=== PATIENT | female | born 2000 | race Caucasian/White ===

== ENCOUNTER → 2020-03-09 | Outpatient (CLI) | payer BC ==
[~2020-03-09] MED LIST: ABILIFY 10MG TA10 MG PO; ATARAX 25MG25 MG/TAB PO; MELATONIN1 MG PO; RITALIN 20M20 MG/TAB PO; STRATTERA18 MG PO; TRAZADONE HYDR100 MG PO
== END ==
LOC: COL.PUL 07:54
DX: J45.909 Unspecified asthma, uncomplicated (principal)

== ENCOUNTER 2020-06-25 22:51 | Emergency (ER) | payer BC ==
[~2020-06-25] VITALS: Ht 172.7 cm; Wt 77.3 kg
[2020-06-25 22:53] VITALS: BP 127/90; TEMP 97.7
[2020-06-25 23:17] LABS: BASO # 0.1 (0.0-0.2); BASO % 0.6 % (0.0-2.0); EOS # 0.1 (0.0-0.7); EOS % 1.7 % (0-4.0); GRAN # 3.8 (1.4-6.5); GRAN % 48.9 % (42.2-75.2); HEMATOCRIT 41.2 % (35.0-45.0); HEMOGLOBIN 14.1 g/dl (12.0-15.0); LYMPH % 39.5 % (20.0-51.0); MEAN CELL VOLUME 87 fl (80.0-95.0); MEAN CORPUSCULAR HEMOGLOBIN 30 pg (26.0-32.0); MEAN CORPUSCULAR HGB CONC 34 g/dl (33.0-37.0); MEAN PLATELET VOLUME 10.5 fl (7.4-10.4); MONO # 0.7 (0.1-0.6); PLATELET COUNT 232 K/mm3 (130-400); RED BLOOD COUNT 4.74 M/mm3 (4.10-5.30); REDCELL DISTRIBUTION WIDTH-CV 12.3 % (11.5-14.5)
[2020-06-25 23:28] LABS: ALANINE AMINOTRANSFERASE 29 U/L (4-34); ALBUMIN 4.7 gm/dL (3.5-5.0); ALKALINE PHOSPHATASE 80 U/L (50-136); ANION GAP 11 mmol/L (7-16); AST,SGOT 26 U/L (15-37); BILIRUBIN,TOTAL 0.3 mg/dL (0.0-1.0); BLOOD UREA NITROGEN 11 mg/dL (7-17); CALCIUM 9.8 mg/dL (8.4-10.2); CARBON DIOXIDE 23 mmol/L (22-30); CHLORIDE 106 mmol/L (98-107); CREATININE, serum 0.76 (0.52-1.25); GLUCOSE 104 mg/dL (74-106); POTASSIUM 3.9 mmol/L (3.4-5.0); SODIUM 140 mmol/L (137-145)
[2020-06-25 23:40] LABS: TROPONIN-I < 0.012 ng/mL (0.000-0.035)
[2020-06-26] MEDS ORDERED: PREDNISONE20 MG PO (00:27)
[2020-06-26 00:42] VITALS: PULSE 78
[2020-06-26] MEDS ORDERED: ATARAX 25MG25 MG/TAB PO (10:52)
[2020-06-26] MEDS ORDERED: SINGULAIR 110 MG/TAB PO (10:52)
[2020-06-26] MEDS ORDERED: LEXAPRO 5MG5 MG PO (10:52)
[2020-06-26] MEDS ORDERED: INDERAL 10MG10 MG PO (10:54)
== END 2020-06-26 00:42 | disposition home or self-care (01) ==
LOC: COL.ER 22:51
PROVIDERS: Emergency Medicine
DX: R06.02 Shortness of breath (principal); F41.9 Anxiety disorder, unspecified; F17.290 Nicotine dependence, other tobacco product, uncomplicated; Z32.02 Encounter for pregnancy test, result negative
CPT/HCPCS: J2060; J7512

== ENCOUNTER 2023-08-29 09:07 | Emergency (ER) | payer BC ==
[~2023-08-29] VITALS: Ht 172.7 cm; Wt 85.0 kg
[~2023-08-29 09:07] MED LIST changes: +INDERAL 10MG10 MG PO; +LEXAPRO 5MG5 MG PO; +MACROBID 1100 MG/CAP PO; +OMNICEF 300MG300 MG PO; +PREDNISONE20 MG PO; +SINGULAIR 110 MG/TAB PO
[2023-08-29] MEDS ORDERED: LORazepam 1 MG TAB PO ONE (10:45)
[2023-08-29 11:32] LABS: BASO % 0.4 % (0.0-2.0); EOS % 0.4 % (0.0-4.0); GRAN # 5.2 K/mm3 (1.4-6.5); GRAN % 65.2 % (42.2-75.2); HEMATOCRIT 42.4 % (37.0-47.0); HEMOGLOBIN 14.9 g/dl (12.5-16.0); LYMPH # 2.1 K/mm3 (1.2-3.4); LYMPH % 26.8 % (20.0-51.0); MEAN CELL VOLUME 86 fl (80.0-100.0); MEAN CORPUSCULAR HEMOGLOBIN 30 pg (27-31); MEAN CORPUSCULAR HGB CONC 35 g/dl (33.0-37.0); MEAN PLATELET VOLUME 11.4 fl (7.4-10.4); MONO # 0.6 K/mm3 (0.1-0.6); MONO % 6.9 % (1.7-9.3); PLATELET COUNT 233 K/mm3 (130-400); RED BLOOD COUNT 4.91 M/mm3 (4.10-5.30); REDCELL DISTRIBUTION WIDTH-CV 12.6 % (11.5-14.5)
[2023-08-29 11:37] LABS: ALBUMIN 4.3 gm/dL (3.5-5.0); BILIRUBIN,TOTAL 0.4 mg/dL (0.2-1.2); CALCIUM 9.9 mg/dL (8.4-10.2); CREATININE, serum 0.82 mg/dL (0.57-1.11); POTASSIUM 4.3 mmol/L (3.5-4.5); TOTAL PROTEIN 7.6 gm/dL (6.2-8.1)
[2023-08-29 11:56] LABS: TSH w REFLEX 2.012 uIU/mL (0.350-4.940)
[2023-08-29] MEDS ORDERED: ATIVAN 1MG T1 MG/TAB PO (12:23)
[2023-08-29] MEDS ORDERED: ZOFRAN ODT4 MG PO (12:26)
[2023-08-29 13:12] VITALS: BP 126/80; PULSE 80; TEMP 98.2
== END 2023-08-29 13:12 | disposition home or self-care (01) ==
LOC: COL.ER 09:07
PROVIDERS: Physician Assistant
DX: F41.9 Anxiety disorder, unspecified (principal); R11.0 Nausea; F17.290 Nicotine dependence, other tobacco product, uncomplicated

== ENCOUNTER 2023-11-12 20:18 | Emergency (ER) | payer BC ==
[~2023-11-12] VITALS: Ht 175.3 cm; Wt 81.8 kg
[~2023-11-12 20:18] MED LIST changes: +ATIVAN 1MG T1 MG/TAB PO; +ZOFRAN ODT4 MG PO
[2023-11-12 20:25] VITALS: TEMP 97.5
[2023-11-12] MEDS ORDERED: BACTRIM DS 8001 TAB PO (20:55)
[2023-11-12] MEDS ORDERED: Sulfamethoxazole/Trimethoprim 800-160 MG TAB PO ONE (21:00)
[2023-11-12 21:21] VITALS: BP 128/85; PULSE 77
== END 2023-11-12 21:26 | disposition home or self-care (01) ==
LOC: COL.ER 20:18
DX: S70.361A Insect bite (nonvenomous), right thigh, initial encounter (principal); W57.XXXA Bitten or stung by nonvenomous insect and other nonvenomous arthropods, initial encounter